=== PATIENT | female | born 1945 | race Caucasian/White ===

== ENCOUNTER 2019-05-28 09:45 | Emergency (ER) | payer MEDICARE ==
[~2019-05-28 09:45] MED LIST: EPINEPHRINE SYRINGE 0.1 MG/ML, 10ML ONE; SODIUM BICARB 8.4%, 50ML SYRINGE ONE
--- NOTE | 2019-05-28 10:18 | NUR ---
optical advisor: This pt was IRA Galvan, initial EMS call for AMS, Cheng Galvan pre-alert for stroke @ 0915. Pt's , Aram Helms contact infor: [phone]
[2019-05-28] MEDS ORDERED: SODIUM BICARBONATE 1 MEQ/ML, 50ML VIAL ONE (10:20)
[2019-05-28] MEDS ORDERED: EPINEPHRINE SYRINGE 0.1 MG/ML, 10ML ONE (10:20)
[2019-05-28] MEDS ORDERED: CALCIUM CHLORIDE 10%, 10ML SYR ONE (10:20)
[2019-05-28] MEDS ORDERED: CALCIUM CHLORIDE 10%, 10ML SYR IVPush ONE ×2 (10:30)
[2019-05-28] MEDS ORDERED: SODIUM BICARB 8.4%, 50ML SYRINGE IVPush ONE ×2 (10:30)
[2019-05-28] MEDS ORDERED: EPINEPHRINE 1 MG/ML, 1ML IVPush ONE ×3 (10:30)
--- NOTE | 2019-05-28 10:43 | NUR ---
0945: CODE BLUE, SEE RUN SHEET
--- NOTE | 2019-05-28 10:44 | NUR ---
SPOUSE IN ROOM, DR. CHEUNG NOTIFIED OF . INCREASE EMOTIONAL SUPPORT GIVEN
--- NOTE | 2019-05-28 10:50 | NUR ---
TASK RN: [facility]or network contacted and Rita Huber provided referral number [id number].
--- NOTE | 2019-05-28 11:00 | NUR ---
TASK RN: At 1040 Felt Carbonizer's office contacted. Felt Carbonizer to come to ER. Coroners case.
--- NOTE | 2019-05-28 11:09 | NUR ---
SPOKE WITH TISSUE DONATION, #[id number]
--- NOTE | 2019-05-28 11:28 | NUR ---
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 Addendum: 05/28/19 at 1131 by [facility] Task RN: Boris to bead picker pt body and contact pt's .
--- NOTE | 2019-05-28 11:56 | NUR ---
PT LEFT WITH [facility] AND [facility].
== END 2019-05-28 11:58 | disposition expired ==
LOC: EDBD 09:45 → ED 10:21
DX: I46.9 Cardiac arrest, cause unspecified (principal); Z20.828 Contact with and (suspected) exposure to other viral communicable diseases; Z86.718 Personal history of other venous thrombosis and embolism
CPT/HCPCS: 31500; 80047; 92950; 99285